=== PATIENT | male | born 1930 | race Caucasian/White ===

== ENCOUNTER 2017-09-19 10:49 | Inpatient (IN) | payer OTHER ==
[2017-09-19] MEDS ORDERED: LIDOCAINE VISCOUS 2% SOLN 15 ML UDC ONE (12:22)
[2017-09-19 12:28] LABS: Absolute Neutrophil 7.1 K/uL (1.8-8.0); Basophils % 0.2 % (0-1.3); Eosinophils % 0.7 % (0-4.4); Hematocrit 26.9 % (39.6-49.0); Lymphocytes % 10.7 % (15.3-44.8); MCH 22.9 pg (27.0-35.0); MCV 73.8 fL (80-100); MPV 7.8 fL (7.6-11.3); Monocytes % 10.9 % (3.3-12.3); RBC Red Blood Cell Count 3.65 M/uL (4.33-5.43)
--- NOTE | 2017-09-19 12:54 | RAD REPORT ---
EXAM DESCRIPTION: RAD - Chest Single View - 09/19/2017 12:05 pm CLINICAL HISTORY: Chest pain. COMPARISON: 03/12/2016 FINDINGS: Portable technique limits examination quality. Mild elevation the right hemidiaphragm is noted. The lungs are grossly clear. The heart is mildly enl arged in size with a tortuous thoracic aorta. Multi lead pacer device noted. IMPRESSION: No acute intrathoracic process suspected. Elevation right hemidiaphragmatic leaflet appe ars to be a chronic finding.
[2017-09-19 13:03] LABS: Potassium 4.5 mEq/L (3.6-5.0)
[2017-09-19 13:25] LABS: Urine Blood TRACE (NEG); Urine Glucose NEGATIVE (NEG); Urine Protein NEGATIVE (NEG)
[2017-09-19 13:30] LABS: Urine Bacteria 20-50 /HPF (NONE SEEN)
[2017-09-19 13:32] LABS: Urine Culture Reflex Order NOT NEEDED
--- NOTE | 2017-09-19 13:32 | ER ---
Nurse's Notes [facility] Name: Loco Pride Age: 86 yrs Sex: Male : 1930 Arrival Date: 09/19/2017 Time: 10:58 Bed 27 Private MD: Diagnosis: Melena;Anemia;Dyspnea, unspecified Presentation: 09/19 10:58 Presenting complaint: EMS states: pt reports weakness, that is chronic but has been sg worsening over the course of about 4 days now, pt being treated by his provider for a UTI, pt reports taking one of his medications today but cannot remember which medication it is, pt denies CP, Headache, Denies N/V/D, reports pain in the lumbar area of back. Transition of care: patient was not received from another setting of care. Onset of symptoms was September 19, 2017. Initial Sepsis Screen: Does the patient meet any 2 criteria? HR > 90 bpm. Does the patient have a suspected source of infection? Yes: Dysuria/Frequency/Urgency/UTI. Care prior to arrival: None. 10:58 Method Of Arrival: EMS: [facility] sg 10:58 Acuity: JANIS 3 sg Historical: - Allergies: 11:03 No Known Allergies; sg - PMHx: 11:02 High Cholesterol; Hypertension; sg - PSHx: 11:02 Knee surgery; Disc surgery; Pacemaker; sg - Immunization history:: Adult Immunizations up to date. - Social history:: Smoking status: Patient/guardian denies using tobacco. - Family history:: not pertinent. - Hospitalizations: : No recent hospitalization is reported. Screenin:12 Abuse screen: Denies threats or abuse. Denies injuries from another. Nutritional aj screening: No deficits noted. Tuberculosis screening: No symptoms or risk factors identified. Fall Risk None identified. Assessment: 11:19 General: Appears in no apparent distress. comfortable, Behavior is calm, cooperative, aj appropriate for age. Pain: Complains of pain in low back area. Neuro: Level of Consciousness is awake, alert, obeys commands, Oriented to person, place, time, situation, Appropriate for age. Respiratory: Airway is patent Respiratory effort is even, unlabored, Respiratory pattern is symmetrical, tachypnea the patient has mild shortness of breath. GI: Abdomen is non-distended, obese. : Reports incontinence, pain in lower back. Derm: Skin is intact, is healthy with good turgor, Skin is pink, warm \T\ dry. normal. 16:08 Reassessment: Patient appears in no apparent distress at this time. No changes from aj previously documented assessment. Patient and/or family updated on plan of care and expected duration. Pain level reassessed. Patient is alert, oriented x 3, equal unlabored respirations, skin warm/dry/pink. Patient states feeling better. Vital Signs: 11:00 BP 138 / 59; Pulse 76 MON; Resp 16; Pulse Ox 92% on R/A; sg 11:02 Weight 113.4 kg (R); sg 11:03 Temp 100.2(O); sg 11:12 BP 114 / 74; Pulse 79; Resp 20; Temp 99.1(O); Pulse Ox 98% on 3 lpm NC; aj 13:20 BP 113 / 67; Pulse 73; Resp 26; Pulse Ox 100% on 3 lpm NC; aj 15:27 BP 111 / 51; Pulse 74; Resp 18; Pulse Ox 99% on 3 lpm NC; aj ED Course: 10:58 Patient arrived in ED. sg 11:00 Triage completed. sg 11:03 Oxygen administration via nasal cannula \T\ 2L/min Response to oxygen therapy: symptoms sg improved. 11:11 Anuja Casas, RN is Primary Nurse. aj 11:12 Patient has correct armband on for positive identification. Bed in low position. Call aj light in reach. Side rails up X 1. Adult w/ patient. Pulse ox on. NIBP on. 11:13 Mukesh Salazar MD is Attending Physician. rn 12:00 Initial lab(s) drawn, by wi, sent to lab. First set of blood cultures drawn by me. 3 Inserted saline lock: 20 gauge in left antecubital area, using aseptic technique. Blood collected. 12:05 X-ray completed. Portable x-ray completed in exam room. Patient tolerated procedure jb2 well. 12:06 XRAY Chest (1 view) In Process Unspecified. EDMS 12:15 Second set of blood cultures drawn by me, by venipuncture 21G to right ac. dh3 13:20 Served as a graduation coach during rectal exam. aj 13:30 Rajeev Villalobos DO is Hospitalizing Provider. rn 13:40 T\T\S collected, blood band applied to patient. dh3 16:08 Patient admitted, IV remains in place. intact. aj Administered Medications: 14:54 Drug: ProTONIX 40 mg Route: IVP; Site: left antecubital; aj 17:12 Follow up: Response: No adverse reaction aj 14:54 Drug: ProTONIX 8 mg/hr Route: IV; Rate: 25 ml/hr; Site: left antecubital; aj 17:11 Follow up: Response: No adverse reaction; IV Status: Infusion continued upon admission aj 14:54 Drug: Demerol - Meperidine 12.5 mg Route: IVP; Site: left antecubital; aj 17:11 Follow up: Response: Pain is decreased aj Point of Care Testing: Guaiac: 13:29 Stool Guaiac: Positive; Stool Hemoccult Control: Pass; rn Outcome: 13:31 Decision to Hospitalize by Provider. rn 16:08 Admitted to Med/surg accompanied by tech, family with patient, via stretcher, room 412, aj with oxygen, with chart, Report called to Delphine 16:08 Condition: good 16:08 Instructed on the need for admit. 17:12 Patient left the ED. drea Signatures: Dispatcher [employer] EDMS Leonid Ascencio RN Anuja Villela RN Jeffrey Bernard Roman, MD MD rn Herrera, Deanna 3 Corrections: (The following items were deleted from the chart) 11:23 11:12 BP 114 / 74; Pulse 79bpm; Resp 20bpm; aj aj 12:18 12:15 Second set of blood cultures drawn by carlos chavez 3
--- NOTE | 2017-09-19 13:32 | EDPHYS ---
Physician Documentation [facility] Name: Loco Pride Age: 86 yrs Sex: Male : 1930 Arrival Date: 09/19/2017 Time: 10:58 Bed 27 Private MD: ED Physician Mukesh Salazar HPI: 09/19 11:24 This 86 yrs old Male presents to ER via EMS with complaints of General rn Weakness. 11:24 The patient has shortness of breath at rest, with light activity. Onset: The rn symptoms/episode began/occurred at an unknown time. The patient's shortness of breath is aggravated by exertion, light activity, supine position, talking, walking. Associated signs and symptoms: Pertinent positives: non-productive cough, fever, Pertinent negatives: hemoptysis, loss of consciousness. Severity of symptoms: At their worst the symptoms were moderate in the emergency department the symptoms are unchanged. The patient has experienced similar episodes in the past. Reports sob, worse over last few days, nonproductive cough, + low grade fever, was treated recently for UTI/bronchitis with z pack, reports also generalized weakness, and low grade fever. No vomiting/diarrhea/chest pain/abd pain.. Historical: - Allergies: 11:03 No Known Allergies; sg - PMHx: 11:02 High Cholesterol; Hypertension; sg - PSHx: 11:02 Knee surgery; Disc surgery; Pacemaker; sg - Immunization history:: Adult Immunizations up to date. - Social history:: Smoking status: Patient/guardian denies using tobacco. - Family history:: not pertinent. - Hospitalizations: : No recent hospitalization is reported. ROS: 11:24 Constitutional: Negative for weight loss Eyes: Negative for injury, pain, redness, and furniture builder, Neck: Negative for injury, pain, and swelling, Cardiovascular: Negative for chest pain, palpitations Respiratory: Negative for wheezing, and pleuritic chest pain, Abdomen/GI: Negative for abdominal pain, nausea, vomiting, diarrhea, and constipation, Back: Negative for injury MS/Extremity: Negative for injury and deformity, Skin: Negative for injury, rash, and discoloration, Neuro: Negative for headache, numbness, tingling, and seizure. Exam: 11:24 Constitutional: This is a well developed, well nourished patient who is awake, alert, rn and in no acute distress. Head/Face: Normocephalic, atraumatic. Eyes: Pupils equal round and reactive to light, extra-ocular motions intact. Lids and lashes normal. Conjunctiva and sclera are non-icteric and not injected. Cornea within normal limits. Periorbital areas with no swelling, redness, or edema. Neck: Trachea midline, no thyromegaly or masses palpated, and no cervical lymphadenopathy. Supple, full range of motion without nuchal rigidity, or vertebral point tenderness. No Meningismus. Cardiovascular: Regular rate and rhythm with a normal S1 and S2. No gallops, murmurs, or rubs. Normal PMI, no JVD. No pulse deficits. Respiratory: + mild tachypnea, no retractions, no wheezing, speaking full sentences Abdomen/GI: Soft, non-tender, with normal bowel sounds. No distension or tympany. No guarding or rebound. No evidence of tenderness throughout. Back: No spinal tenderness. + mild tenderness without skin changes bilateral perilumbar regions and midline. MS/ Extremity: Pulses equal, no cyanosis. Neurovascular intact. Full, normal range of motion. Equal circumference. Neuro: Awake and alert, GCS 15, oriented to person, place, time, and situation. Cranial nerves II-XII grossly intact. Motor strength 5/5 in all extremities. Sensory grossly intact. Vital Signs: 11:00 BP 138 / 59; Pulse 76 MON; Resp 16; Pulse Ox 92% on R/A; sg 11:02 Weight 113.4 kg (R); sg 11:03 Temp 100.2(O); sg 11:12 BP 114 / 74; Pulse 79; Resp 20; Temp 99.1(O); Pulse Ox 98% on 3 lpm NC; aj 13:20 BP 113 / 67; Pulse 73; Resp 26; Pulse Ox 100% on 3 lpm NC; aj 15:27 BP 111 / 51; Pulse 74; Resp 18; Pulse Ox 99% on 3 lpm NC; aj MDM: 11:13 Patient medically screened. rn 13:29 Differential diagnosis: Anemia CHF exacerbation, Myocardial Infarction pneumonia, rn Pneumothorax pulmonary edema. Data reviewed: vital signs, nurses notes, lab test result(s), EKG, radiologic studies, plain films, and as a result, I will admit patient. Counseling: I had a detailed discussion with the patient and/or guardian regarding: the historical points, exam findings, and any diagnostic results supporting the discharge/admit diagnosis, lab results, radiology results, the need for further work-up and treatment in the hospital. Admission orders: after a detailed discussion of the patient's condition and case, the admit orders are written by me. 13:29 ED course: Drop in hemoglobin from 13 to 8, melena, and + hemoccult, will admit for GI rn w/u, on pradaxa. . 09/19 11:20 Order name: CBC with Diff; Complete Time: 12:30 rn 09/19 11:20 Order name: Basic Metabolic Panel; Complete Time: 13:26 rn 09/19 11:20 Order name: Urine Culture rn 09/19 11:20 Order name: Urine Microscopic Only rn 09/19 11:20 Order name: Blood Culture Adult (2) rn 09/19 11:20 Order name: Procalcitonin; Complete Time: 13:26 rn 09/19 11:20 Order name: XRAY Chest (1 view); Complete Time: 13:03 rn 09/19 11:20 Order name: BNP; Complete Time: 13:03 rn 09/19 12:43 Order name: Urine Dipstick--Ancillary (enter results); Complete Time: 13:26 09/19 13:26 Order name: Type And Screen rn 09/19 14:31 Order name: ABO/RH no charge EDME 09/19 11:20 Order name: IV Start; Complete Time: 12:07 rn 09/19 11:20 Order name: Urine Dipstick-Ancillary (obtain specimen); Complete Time: 14:54 rn Administered Medications: 14:54 Drug: ProTONIX 40 mg Route: IVP; Site: left antecubital; aj 17:12 Follow up: Response: No adverse reaction aj 14:54 Drug: ProTONIX 8 mg/hr Route: IV; Rate: 25 ml/hr; Site: left antecubital; aj 17:11 Follow up: Response: No adverse reaction; IV Status: Infusion continued upon admission aj 14:54 Drug: Demerol - Meperidine 12.5 mg Route: IVP; Site: left antecubital; aj 17:11 Follow up: Response: Pain is decreased aj Point of Care Testing: Guaiac: 13:29 Stool Guaiac: Positive; Stool Hemoccult Control: Pass; rn Disposition: 09/19/17 13:31 Hospitalization ordered by Rajeev Villalobos for Inpatient Admission. Preliminary diagnosis are Melena, Anemia, Dyspnea, unspecified. - Bed requested for Telemetry/MedSurg (Inpatient). - Status is Inpatient Admission. aj - Condition is Stable. - Problem is new. - Symptoms have improved. UTI on Admission? No Signatures: Dispatcher [employer] EDMS AydeeRoselia foy Leonid Guzman RN RN sg Myers, Amanda, RN RN aj Nieto, Roman, MD MD rn acute care: (The following items were deleted from the chart) 15:15 13:31 Hospitalization Ordered by Rajeev Villalobos DO for Inpatient Admission. Preliminary bd diagnosis is Melena; Anemia; Dyspnea, unspecified. Bed requested for Telemetry/MedSurg (Inpatient). Status is Inpatient Admission. Condition is Stable. Problem is new. Symptoms have improved. UTI on Admission? No. rn 17:12 15:15 09/19/2017 13:31 Hospitalization Ordered by Rajeev Villalobos DO for Inpatient aj Admission. Preliminary diagnosis is Melena; Anemia; Dyspnea, unspecified. Bed requested for Telemetry/MedSurg (Inpatient). Status is Inpatient Admission. Condition is Stable. Problem is new. Symptoms have improved. UTI on Admission? No. bd
[2017-09-19] MEDS ORDERED: PANTOPRAZOLE INJ 80 MG in NA CHLORIDE 0.9% 250 ML IV ONE (14:30)
[2017-09-19] MEDS ORDERED: PANTOPRAZOLE 40 MG INJ ONE (14:45)
[2017-09-19] MEDS ORDERED: MEPERIDINE HCL 25 MG/0.5 ML ONE (14:52)
--- NOTE | 2017-09-19 15:24 | P.HP ---
Addendum entered and electronically signed by Garret Vela PA 09/19/17 15:49 : Patient with catheterized urine showing bacteria. Will treat as UTI and put on cipro pending cultures Original Note: Certification for Inpatient Patient admitted to: Inpatient With expected LOS: >2 Midnights Patient will require the following post-hospital care: None Practitioner: I am a practitioner with admitting privileges, knowledge of patient current condition, hospital course, and medical plan of care. Services: Services provided to patient in accordance with Admission requirements found in Title 42 Section 412.3 of the Code of Federal Regulations <Garret Vela - Last Filed: 09/19/17 15:18> Patient admitted to: Inpatient With expected LOS: >2 Midnights Patient will require the following post-hospital care: None Practitioner: I am a practitioner with admitting privileges, knowledge of patient current condition, hospital course, and medical plan of care. Services: Services provided to patient in accordance with Admission requirements found in Title 42 Section 412.3 of the Code of Federal Regulations <Rajeev Villalobos - Last Filed: 09/19/17 18:41> Patient History Date of Service: 09/19/17 Primary Care Provider: Sander Reason for admission: Gastrointestinal Hemorrhage History of Present Illness: This is an 86 y/o M that presented to the ED for general weakness. Patient sated that he normally is not this week. This has been going on only for the past few days. Noted to also have black stools as well. Patient currently on Pradaxa for Atrial fibrillation. Patient in ED had positive guaiac test. Home medications list reviewed: Yes - Past Medical/Surgical History Diabetic: No -: CAD -: COPD -: L cornea transplant -: A-fib -: BPH -: Rt knee deteroration -: HTN -: Hyperlipidemia -: electrocuted -: Congestive heart failure -: Elevated right hemidiaphragm -: pacemaker december 04, 2014 -: L cornea eye transplant -: back surg- bri disc x2 -: rt knee sx - Family History Mother -: Cancer, Other (see notes) Notes: alzheimers Father -: Stroke - Social History Smoking Status: Former smoker Smoking therapy provided: No Alcohol use: No CD- Drugs: No Caffeine use: No <Garret Vela - Last Filed: 09/19/17 15:18> Date of Service: 09/19/17 Primary Care Provider: Dr. Boucher; Cardiology-Dr. Meneses History of Present Illness: Patient reports some weakness and feeling dizzy. He is taking chronic anticoagulation therapy for Atrial fibrillation. No fever or chills noted. He is taking medication for CHF. No edema, SOB, or chest pain noted. Home medications list reviewed: Yes - Past Medical/Surgical History -: A-fib, Chronic anticoagulation -: Former smoker Psychosocial/ Personal History: He is . - Family History Father -: Stroke - Social History Smoking Status: Former smoker Smoking therapy provided: No Alcohol use: No CD- Drugs: No Caffeine use: No Place of Residence: Home <MoisesfrankyRajeev - Last Filed: 09/19/17 18:41> Allergies No Known Drug Allergies Allergy (Verified 04/29/15 12:39) Unknown No Known Allergies Allergy (Uncoded 09/19/17 17:15) Unknown Home Medications: Dabigatran Etexilate Mesylate [Pradaxa] 1 tab PO BID 6AM 6PM 09/19/17 Finasteride [Proscar] 5 mg PO NOON 09/19/17 Fluorometholone 0.1% [Fml 0.1%*] 1 drop LEFT EYE BEDTIME 09/19/17 Furosemide [Lasix] 1 tab PO DAILY 09/19/17 Metoprolol Tartrate 25 mg PO BID 6AM 6PM 09/19/17 Multivit-Min/FA/Lycopen/Lutein [Centrum Silver Tablet] 1 tab PO NOON 09/19/17 Oxybutynin Chloride [Ditropan*] 1 tab PO BEDTIME 09/19/17 Potassium Chloride 20 meq PO QID 09/19/17 Pravastatin [Pravachol] 40 mg PO DAILY 6PM 09/19/17 Sacubitril/Valsartan [Entresto 49 mg-51 mg Tablet] 1 tab PO BID 6AM 6PM Tamsulosin [Flomax*] 1 cap PO BEDTIME 09/19/17 Ubidecarenone/Vitamin E Mixed [Yfs47-Lma E 200 mg-20 Unit Sfg] 1 each PO NOON Review of Systems General: Weakness Eyes: Unremarkable ENT: Unremarkable Respiratory: Unremarkable Cardiovascular: Unremarkable Gastrointestinal: Melena, As per HPI Genitourinary: Unremarkable Musculoskeletal: Unremarkable Integumentary: Unremarkable Neurological: Unremarkable Lymphatics: Unremarkable <IdaneldaBrittney de los santosGarret - Last Filed: 09/19/17 15:18> General: Weakness Eyes: Unremarkable ENT: Unremarkable Respiratory: Unremarkable Cardiovascular: Unremarkable Gastrointestinal: Melena, As per HPI Genitourinary: Unremarkable Musculoskeletal: Unremarkable Integumentary: Unremarkable Neurological: Unremarkable Lymphatics: Unremarkable <Rajeev Villalobos - Last Filed: 09/19/17 18:41> Physical Examination - Vital Signs Temperature: 99.1 F Blood Pressure: 111/51 Pulse: 74 Respirations: 18 Pulse Ox (%): 99 - Physical Exam General: Alert, In no apparent distress, Oriented x3, Cooperative HEENT: Atraumatic, Normocephalic, PERRLA, Mucous membr. moist/pink, EOMI Neck: Supple, 2+ carotid pulse no bruit, JVD not distended, No Thyromegaly Respiratory: Clear to auscultation bilaterally, Normal air movement Cardiovascular: No edema, Normal pulses, Regular rate/rhythm, Normal S1 S2, No gallops, No rubs, No murmurs Capillary refill: <2 Seconds Gastrointestinal: Normal bowel sounds, Soft and benign, Non-distended, No ascites, No tenderness, No masses, No rebound, No guarding Musculoskeletal: No clubbing, No swelling, No erythema, No tenderness, No warmth Integumentary: No rashes, No breakdown, No significant lesion Neurological: Normal speech, Normal strength at 5/5 x4 extr, Normal tone, Sensation intact, Cranial nerves 3-12 intact, Normal reflexes 2+, Normal affect - Studies Laboratory Data (last 24 hrs) 09/19/17 12:00: B-Natriuretic Peptide 496 H 09/19/17 12:00: Sodium 141, Potassium 4.5, BUN 23 H, Creatinine 1.28 H, Glucose 98 09/19/17 12:00: WBC 9.1, Hgb 8.4 L, Hct 26.9 L, Plt Count 282 <Brittney Velashua - Last Filed: 09/19/17 15:18> - Physical Exam General: Alert, In no apparent distress, Oriented x3, Oriented x2, Cooperative HEENT: Atraumatic, Normocephalic, PERRLA Neck: Supple, 2+ carotid pulse no bruit Respiratory: Clear to auscultation bilaterally, Normal air movement Cardiovascular: Normal pulses, Regular rate/rhythm Gastrointestinal: Normal bowel sounds, Soft and benign, Non-distended Musculoskeletal: No erythema, No tenderness, No warmth - Studies Laboratory Data (last 24 hrs) 09/19/17 12:00: B-Natriuretic Peptide 496 H 09/19/17 12:00: Sodium 141, Potassium 4.5, BUN 23 H, Creatinine 1.28 H, Glucose 98 09/19/17 12:00: WBC 9.1, Hgb 8.4 L, Hct 26.9 L, Plt Count 282 <Rajeev Villalobos - Last Filed: 09/19/17 18:41> Assessment and Plan - Problems (Diagnosis) (1) Anemia Current Visit: Yes Status: Acute Plan: Monitor H/H. If necessary transfuse patient. GI consulted for gastrointestinal hemorrhage Qualifiers: Anemia type: iron deficiency Iron deficiency anemia type: unspecified iron deficiency Qualified Code(s): D50.9 - Iron deficiency anemia, unspecified (2) Gastrointestinal hemorrhage Current Visit: Yes Status: Acute Plan: GI consult. Patient put on protonix drip. Monitoring H/H. Qualifiers: GI bleed type/associated pathology: melena Qualified Code(s): K92.1 - Melena (3) Atrial fibrillation Current Visit: No Status: Chronic Qualifiers: Atrial fibrillation type: chronic Qualified Code(s): I48.2 - Chronic atrial fibrillation (4) CHF (congestive heart failure) Onset Date: 10/23/14 Current Visit: No Status: Chronic Qualifiers: Heart failure type: combined systolic and diastolic Heart failure chronicity: chronic Qualified Code(s): I50.42 - Chronic combined systolic ( congestive) and diastolic (congestive) heart failure Discharge Plan: Home Plan to discharge in: Greater than 2 days - Advance Directives Does patient have a Living Will: No Does patient have a Durable POA for Healthcare: Yes - Code Status/Comfort Care Code Status Assessed: Yes Code Status: Full Code <Garret Vela - Last Filed: 09/19/17 15:18> - Problems (Diagnosis) (1) Chronic renal disease Current Visit: Yes Status: Chronic Plan: WIll monitor lab. Patient on Lasix for CHF. Patient admitted for GI bleed on Pradaxa. Qualifiers: Chronic kidney disease stage: stage 2 (mild) Qualified Code(s): N18.2 - Chronic kidney disease, stage 2 (mild) (2) BPH (benign prostatic hyperplasia) Current Visit: Yes Status: Chronic Plan: Will continue his medication. Qualifiers: Lower urinary tract symptom presence: unspecified whether lower urinary tract symptoms present Qualified Code(s): N40.0 - Benign prostatic hyperplasia without lower urinary tract symptoms (3) GERD (gastroesophageal reflux disease) Current Visit: Yes Status: Acute Plan: Suspect GI bleed. Currently on Protonix drip. Spoke to GI this afternoon. Will plan for EGD tomorrow after Cardiology clearance. Will need to hold Pradaxa for now. May need transfusion is Hemoglobin is less than 7.0. (4) Anemia Current Visit: Yes Status: Acute Plan: Suspect GI bleed on Pradaxa. Will hold Pradaxa. SPoke to GI. They will proceed with EGD tomorrow after Cardiology clearance. Will start Rocephin IV. Will monitor Hemoglobin. May need transfusion if Hemoglobin below 7.0. Will check Iron and B12. Will hold Entrusto. Qualifiers: Anemia type: iron deficiency Iron deficiency anemia type: unspecified iron deficiency Qualified Code(s): D50.9 - Iron deficiency anemia, unspecified (5) Gastrointestinal hemorrhage Current Visit: Yes Status: Acute Plan: As above Qualifiers: GI bleed type/associated pathology: melena Qualified Code(s): K92.1 - Melena (6) Atrial fibrillation Onset Date: 03/12/16 Current Visit: No Status: Chronic Plan: Will hold Pradaxa. Will hold Entrusto. Will continue with Metoprolol. May need to hold medication if BP low. Qualifiers: Atrial fibrillation type: chronic Qualified Code(s): I48.2 - Chronic atrial fibrillation (7) COPD (chronic obstructive pulmonary disease) Onset Date: 10/23/14 Current Visit: No Status: Chronic Plan: Will provide medication. Qualifiers: COPD type: chronic bronchitis Chronic bronchitis type: unspecified Qualified Code(s): J42 - Unspecified chronic bronchitis (8) Dizziness Onset Date: 03/12/16 Current Visit: No Status: Acute Plan: Continue as above (9) HTN (hypertension) Onset Date: 10/23/14 Current Visit: No Status: Chronic Plan: Will hold Entrusto. Will continue with metoprolol. May need to hold if BP is low. Qualifiers: Hypertension type: essential hypertension Qualified Code(s): I10 - Essential (primary) hypertension (10) CHF (congestive heart failure) Onset Date: 10/23/14 Current Visit: No Status: Chronic Plan: Stable. Will Hold IV fluids. Will hold Entrusto. Continue with Lasix. Qualifiers: Heart failure type: combined systolic and diastolic Heart failure chronicity: chronic Qualified Code(s): I50.42 - Chronic combined systolic ( congestive) and diastolic (congestive) heart failure (11) UTI (urinary tract infection) Current Visit: Yes Status: Acute Plan: Will change Cipro to Rocephin. Urine and Blood culture obtained. Qualifiers: Urinary tract infection type: site unspecified Hematuria presence: without hematuria Qualified Code(s): N39.0 - Urinary tract infection, site not specified Discharge Plan: Home Plan to discharge in: Greater than 2 days Time Spent Managing Pts Care (In Minutes): 55 <Rajeev Villalobos - Last Filed: 09/19/17 18:41>
[2017-09-19] MEDS ORDERED: ACETAMINOPHEN 500 MG TAB PO PRN (16:52)
[2017-09-19] MEDS ORDERED: NA CHLORIDE 0.9% 1,000 ML IV SCH (16:52)
[2017-09-19] MEDS: PANTOPRAZOLE INJ 80 MG in NA CHLORIDE 0.9% 250 ML IV SCH (17:30)
[2017-09-19] MEDS ORDERED: CIPROFLOXACIN 400mg IV 400 MG/200 ML BAG IV SCH (21:00)
[2017-09-19] MEDS: FLUOROMETHOLONE 0.1% LEFT EYE SCH (21:00)
[2017-09-19] MEDS: TAMSULOSIN 0.4 MG SR CAP PO SCH (22:44)
[2017-09-19] MEDS: ATORVASTATIN 10 MG TAB PO SCH (22:48)
[2017-09-19] MEDS: CEFTRIAXONE/SWI 1gm 1 GM/10 ML SYR IV SCH (22:48)
[2017-09-19] MEDS: OXYBUTYNIN CHLORIDE 5 MG TAB PO SCH (22:48)
[2017-09-19 23:48] LABS: Hematocrit 26.3 % (39.6-49.0)
[2017-09-20] MEDS: PANTOPRAZOLE INJ 80 MG in NA CHLORIDE 0.9% 250 ML IV SCH ×2 (03:45→14:15)
[2017-09-20] MEDS: METOPROLOL TAR 25 MG TAB PO SCH ×2 (05:34→17:21)
[2017-09-20 06:05] LABS: Absolute Lymphocytes (CBC) 1.1 K/uL (0.7-4.9); Absolute Monocytes 1.3 K/uL (0.1-1.3); Absolute Neutrophil 9.4 K/uL (1.8-8.0); Basophils % 0.2 % (0-1.3); Eosinophils % 0.4 % (0-4.4); Hematocrit 23.5 % (39.6-49.0); Lymphocytes % 9.5 % (15.3-44.8); MCH 22.7 pg (27.0-35.0); MPV 7.8 fL (7.6-11.3); Monocytes % 10.9 % (3.3-12.3); RBC Red Blood Cell Count 3.18 M/uL (4.33-5.43)
[2017-09-20 06:51] LABS: Albumin 2.4 g/dL (3.2-5.5); Bilirubin Direct 0.1 mg/dL (0-0.2); Bilirubin Total 0.6 mg/dL (0.3-1.2); Potassium 4.6 mEq/L (3.6-5.0); Protein, Total 5.2 g/dL (6.0-8.3)
[2017-09-20 07:02] LABS: Ferritin 24.5 ng/ml (23.9-336.2); Thyroid Stimulating Hormone 1.76 uIU/mL (0.34-5.60)
[2017-09-20] MEDS ORDERED: NA CHLORIDE 0.9% 500 ML ONE (08:18)
[2017-09-20] MEDS ORDERED: CEFTRIAXONE 1 GM/NS 50 ML 1 GM/50 ML BAG IV SCH (09:00)
[2017-09-20] MEDS: FINASTERIDE 5 MG TAB PO SCH (12:00)
[2017-09-20] MEDS: HYDROCODONE/APAP 5/325 MG TAB PO PRN (14:15)
--- NOTE | 2017-09-20 15:28 | EKG ---
Test Date: 2017-09-20 Test Time: 09:33:05 [employer] Mock Up Assembler: JOSE LUIS MEASUREMENT RESULTS: Intervals: Rate: 77 CT: QRSD: 182 QT: 476 QTc: 538 [place]: P: CT: QRS: 245 T: 54 INTERPRETIVE STATEMENTS: paced rhythm Right bundle branch block Possible Lateral infarct, age undetermined Inferior infarct, age undetermined Abnormal ECG Compared to ECG 03/11/2016 06:16:50 [facility] Electronically Signed On 09-20-17 15:26:53 CDT by Adriel Meneses
--- NOTE | 2017-09-20 18:49 | PN ---
Date of Progress Note: 09/20/2017 History: The patient is seen and examined. Chart reviewed and case discussed with RN and Dr. Danuta wiley. The patient is going for EGD today by Cardiology. No further bleeding from the stool. Son and randy varner at the bedside, and also present. Treatment plan explained. All questions answered. Review of Systems: Negative except as above. Medications: Reviewed. Physical Examination: Vital Signs: Temperature 98.5, heart rate 76, blood pressure 127/41, respirations 20, O2 98% on 2 L via nasal cannula. General: Awake, alert, oriented x2. Elderly male. Obese. BMI 36.7. Ill-appearing. CV: S1, S2. No murmurs. Regular rate and rhythm. Peripheral pulses present. Respiratory: Moving air well bilaterally. No wheezing. No stridor. Gastrointestinal: Abdomen is soft, nontender, nondistended. Positive bowel sounds. No guarding or rigidity. Extremities: No clubbing, cyanosis, or edema. Neurologic: Nonfocal. Laboratory Data: Sodium 138, potassium 4.6, chloride 104, CO2 29, BUN 24, creatinine 1.32, glucose 1 18, calcium 7.6, albumin 2.4. WBC 11.9, H and H 7.2, 23.5, platelets 230, neutrophils 79%. Blood cu ltures gram-positive cocci in pairs and chains. Urine culture is pending. Assessment And Plan: An 86-year-old male with: 1.Upper gastrointestinal bleed. We will continue on Protonix drip. Monitor H and H. 2.Acute blood loss anemia. We will transfuse if less than 7. Monitor H and H. GI on board. Going for EGD. 3.Chronic atrial fibrillation. Hold anticoagulation due to GI bleed. 4.Combined systolic and diastolic heart failure, chronic. Continue home medications as appropriate. 5.Obesity, BMI 36.7. 6.Coronary artery disease [place] artery and [place] heart without angina. 7.Chronic obstructive pulmonary disease, chronic bronchitis. 8.Benign prostatic hypertrophy. Resume home medication. 9.Essential hypertension, stable. 10.Hyperlipidemia. 11.Continue home medication. 12.Status post pacemaker. SA/MODL Voice ID: [id number] Report ID: [id number]
[2017-09-20] MEDS: FLUOROMETHOLONE 0.1% LEFT EYE SCH (21:00)
[2017-09-20] MEDS: ATORVASTATIN 10 MG TAB PO SCH (22:01)
[2017-09-20] MEDS: TAMSULOSIN 0.4 MG SR CAP PO SCH (22:01)
[2017-09-20] MEDS: OXYBUTYNIN CHLORIDE 5 MG TAB PO SCH (22:05)
[2017-09-20] MEDS: CEFTRIAXONE/SWI 1gm 1 GM/10 ML SYR IV SCH (22:05)
--- NOTE | 2017-09-20 23:37 | CON ---
Date of Consultation: 09/20/2017 I saw the patient on 09/20/2017. Reason For Consultation: Cardiac clearance because of history of congestive heart failure and atrial fibrillation, on anticoagulation. History Of Present Illness: Mr. Pride is a patient of ours for many years. He has a history of hyp ertension, dyslipidemia, congestive heart failure. He is status post AICD and pacemaker placement. He has a history of CAD and COPD. He came in with a GI bleed that sounds chronic. Hemoglobin was 8. 4 and was 7.2 today. He is receiving transfusion. He has a BNP of 426, creatinine of 1.28. He came in, and he was taking Pradaxa at home and has noted some bleeding that is mild, but he was guaiac po sitive. Endoscopy is planned. Last ejection fraction 45%, which is chronic for him. No cardiac sym ptoms. Past Medical History: As stated earlier. Allergies: NONE. Review of Systems: Negative. Social History: Negative. Family History: Negative. Medications: At home include Pradaxa, Lasix, metoprolol, Pravachol, potassium, Entresto, and Flomax. Physical Examination: General: He appear to be very fatigued, but no shortness of breath. No chest pain. Vital Signs: Stable. Afebrile. HEENT: Negative. Neck: Supple without any bruit, lymphadenopathy, thyromegaly, or JVD. Chest: Clear. Cardiac: Revealed a regular rhythm and rate. No murmurs, gallops, or rubs. Abdomen: Benign. Extremities: Revealed no clubbing, cyanosis, or edema. Diagnostic Data: As stated earlier, EKG showed paced rhythm. Chest x-ray is negative. Impression And Plan: 1.Chronic systolic congestive heart failure, stable, asymptomatic, on appropriate therapy. We will clear him for endoscopy. 2.Atrial fibrillation, on Pradaxa that is held for now. Transfusion has been ordered. 3.Hypertension, stable. 4.Dyslipidemia, stable. 5.Status post automatic implantable cardioverter-defibrillator and pacemaker, checked recently, and they were functioning properly. 6.History of coronary artery disease and chronic obstructive pulmonary disease. Both of those are s table. We will follow him along. RAI/ORTIZ Voice ID: [id number] Report ID: [id number]
[2017-09-21] MEDS: PANTOPRAZOLE INJ 80 MG in NA CHLORIDE 0.9% 250 ML IV SCH ×3 (03:15→20:58)
[2017-09-21 04:50] LABS: Absolute Lymphocytes (CBC) 1.3 K/uL (0.7-4.9); Absolute Monocytes 1.2 K/uL (0.1-1.3); Absolute Neutrophil 10.5 K/uL (1.8-8.0); Basophils % 0.3 % (0-1.3); Eosinophils % 1.8 % (0-4.4); Hematocrit 25.7 % (39.6-49.0); Lymphocytes % 9.7 % (15.3-44.8); MCH 23.4 pg (27.0-35.0); MCV 75.1 fL (80-100); MPV 8.1 fL (7.6-11.3); Monocytes % 9.2 % (3.3-12.3); RBC Red Blood Cell Count 3.42 M/uL (4.33-5.43)
[2017-09-21 05:04] LABS: Potassium 4.7 mEq/L (3.6-5.0)
[2017-09-21] MEDS: METOPROLOL TAR 25 MG TAB PO SCH ×2 (06:38→06:43)
[2017-09-21 07:16] VITALS: BMI 37.3
[2017-09-21] MEDS ORDERED: Morphine 2 MG/2 ML SYR IV ONE (10:27)
[2017-09-21] MEDS: FINASTERIDE 5 MG TAB PO SCH (12:00)
[2017-09-21] MEDS ORDERED: Ringers Lactate 1,000 ML IV ONE (13:30)
[2017-09-21] MEDS ORDERED: PROPOFOL 200 MG/20 ML VIAL IV ONE (13:43)
--- NOTE | 2017-09-21 14:34 | PN ---
Date of Progress Note: 09/21/2017 Subjective: The patient is seen and examined. Chart reviewed and case discussed with RN. The patie nt going for EGD today. I spoke with Dr. Mancia plans on doing a scope today. No further episodes of bleeding. Review of Systems: Negative except as above. Medications: Reviewed. Physical Examination: Vital Signs: Temperature 97.9, heart rate 70, blood pressure 110/56, respirations 18, O2 sat 95% on 2 L via nasal cannula. General: Awake, alert, oriented x2, elderly male, ill-appearing frail, morbidly obese. CV: S1, S2. Peripheral pulses present. Respiratory: Moving air well bilaterally. No stridor. No wheezing. No use of accessory muscles. Gastrointestinal: Abdomen is soft, nontender, nondistended. Positive bowel sounds. No guarding or rigidity. Bowel sounds positive. Extremities: No clubbing, cyanosis, edema. Neurologic: Nonfocal. Laboratory Data: Sodium 139, potassium 4.7, chloride 103, CO2 30, BUN 22, creatinine 1.24, glucose 1 12, calcium 8. WBC 13.3, H and H 8 and 25.7, platelets 229, neutrophils 79%. Blood cultures pending . Urine culture, 3+ [id number] strep. Assessment And Plan: An 86-year-old male with: 1.Upper gastrointestinal bleed. Continue on Protonix drip. Monitor H and H. The patient going for EGD today by Dr. Mancia. 2.Acute blood loss anemia. Monitor H and H, transfuse if less than 7. Appreciate GI input. 3.Chronic atrial fibrillation. Anticoagulation held due to gastrointestinal bleed. 4.Combined systolic and diastolic heart failure, chronic. Continue home medications. 5.Obesity, BMI 37. 6.Coronary artery disease, [place] artery and [place] heart without angina, stable. 7.Chronic obstructive pulmonary disease, chronic bronchitis, currently on 2 L of oxygen. 8.Benign prostatic hypertrophy, stable on medications. 9.Essential hypertension, stable. 10.Hyperlipidemia, mixed. Continue home medications. 11.Status post pacemaker. Plan: Follow up with GI recommendations post EGD. SA/MODL Voice ID: [id number] Report ID: [id number]
[2017-09-21] MEDS: HYDROCODONE/APAP 5/325 MG TAB PO PRN (17:58)
[2017-09-21] MEDS: ATORVASTATIN 10 MG TAB PO SCH (20:59)
[2017-09-21] MEDS: OXYBUTYNIN CHLORIDE 5 MG TAB PO SCH (20:59)
[2017-09-21] MEDS: CEFTRIAXONE/SWI 1gm 1 GM/10 ML SYR IV SCH (20:59)
[2017-09-21] MEDS: TAMSULOSIN 0.4 MG SR CAP PO SCH (20:59)
[2017-09-21] MEDS: FLUOROMETHOLONE 0.1% LEFT EYE SCH (21:00)
--- NOTE | 2017-09-22 02:33 | OP ---
Date of Procedure: 09/21/2017 Surgeon: MD Dr. Wilfredo Workman. Procedure Peformed: Esophagogastroduodenoscopy with biopsy from gastric body and antrum. Anesthesia: By Department of Anesthesia. Indication: 1.See Dr. Correia's consult who did the original consult on this patient. 2.Anemia, concern for GI bleeding. Premedication: Per Anesthesia. Procedure In Detail: Procedure, possible complications, alternatives including but not limited to po ssibility of bleeding, perforation, tear, infection, sepsis, need for surgery, need for blood transfu daniela, anesthesia-related problem including rare fatalities explained to be informed constitution party, consent ob tained. He was placed in left lateral position. After appropriate level of anesthesia, scope was pa ssed. Esophageal mucosa in the proximal, mid, and distal aspect appeared to be within normal range. EG junction is normal. Z-line is regular. In the stomach, mucosa of the fundus, body, antrum, pyloric area, prepyloric area, and upon retroflex ion, diffuse gastritis noted of mild variety. No active or passive bleeding noted. No ulceration or erosion noted. In the duodenum, duodenal bulb, duodenal angle, duodenal part 2 appeared to be within normal range. Having done the above procedure in safe, diligent, and satisfactory manner, endoscope and rest of the endoscopic accessories were removed. The patient's oropharyngeal area was cleaned out in a respectf ul manner. The patient has been sent in excellent condition to postop recovery, from there to the [facility]. Impression: Diffuse gastritis. Plan: Await biopsy results. Continue proton pump inhibitor. Start diet. Advance as tolerated. Fu rther treatment as an outpatient. The patient will most likely need colonoscopy on an outpatient bas is once his condition stabilizes. Complications: None. The patient tolerated the procedure well. Disposition: As above. NMM/MODL Voice ID: [id number] Report ID: [id number]
[2017-09-22 04:52] LABS: Potassium 4.1 mEq/L (3.6-5.0)
[2017-09-22 04:58] LABS: Absolute Lymphocytes (CBC) 1.1 K/uL (0.7-4.9); Absolute Neutrophil 8.7 K/uL (1.8-8.0); Basophils % 0.2 % (0-1.3); Eosinophils % 1.2 % (0-4.4); Hematocrit 26.2 % (39.6-49.0); Lymphocytes % 10.1 % (15.3-44.8); MCV 74.1 fL (80-100); MPV 8.2 fL (7.6-11.3); Monocytes % 9.2 % (3.3-12.3); RBC Red Blood Cell Count 3.53 M/uL (4.33-5.43)
[2017-09-22] MEDS: HYDROCODONE/APAP 5/325 MG TAB PO PRN ×2 (05:07→20:52)
[2017-09-22] MEDS: METOPROLOL TAR 25 MG TAB PO SCH ×2 (05:08→18:17)
[2017-09-22] MEDS: PANTOPRAZOLE INJ 80 MG in NA CHLORIDE 0.9% 250 ML IV SCH ×2 (05:30→06:57)
[2017-09-22] MEDS ORDERED: POLYETHYL GLY 3350 17 GM/DOSE PO PRN (09:31)
--- NOTE | 2017-09-22 11:01 | RAD REPORT ---
EXAM DESCRIPTION: Lumbar Spine 3 Views CLINICAL HISTORY: Radiculopathy COMPARISON: None. FINDINGS: Advanced degenerative levoscoliosis of the mid lumbar levels is present. There is multilev el degenerative change with posterior osteophytes and disc thinning throughout the lumbar spine. Aort ic atherosclerosis is noted. Prominent facet arthrosis is present. No finding to indicate an acute fr acture. 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
[2017-09-22] MEDS ORDERED: CIPROFLOXACIN 400mg IV 400 MG/200 ML BAG IV SCH (12:30)
--- NOTE | 2017-09-22 13:26 | PN ---
Date of Progress Note: 09/22/2017 Subjective: The patient is seen and examined. Chart reviewed and case discussed with RN. The patie nt went for EGD yesterday, was found to have some gastritis. The patient complaining of back pain to day. Has not moved out of bed since the hospitalization. PT has been ordered. Review of Systems: Negative except as above. Medications: Reviewed. Physical Examination: Vital Signs: Temperature 98.8, heart rate 69, blood pressure 125/54, respirations 16, O2 92% on 2 L via nasal cannula. General: Awake, alert, oriented x2. Elderly male, ill-appearing, morbidly obese, BMI 37. CV: S1, S2. Peripheral pulses present. No murmurs. Respiratory: Moving air well bilaterally. No wheezing. Gastrointestinal: Abdomen is soft, nontender, nondistended. Positive bowel sounds. Extremities: No clubbing, cyanosis, edema. Neurologic: Nonfocal. Laboratory Data: WBC 10.9, H and H 8.1 and 26.2, platelets 220, neutrophils 79%. Sodium 136, potass ium 4.1, chloride 102, CO2 25, BUN 23, creatinine 1.15, glucose 115, calcium 8.2. Urine culture grow ing Enterococcus faecalis. Blood cultures also growing Enterococcus faecalis. Lumbar spine x-ray sh ows advanced degenerative levoscoliosis of the lumbar spine. Assessment And Plan: An 86-year-old male with: 1.Upper gastrointestinal bleed secondary to diffuse gastritis. Continue PPI. We will monitor H and H. Appreciate Dr. Mancia's input. 2.Acute blood loss anemia. We will continue to monitor H and H and transfuse as needed. 3.Chronic atrial fibrillation. Anticoagulation held due to gastrointestinal bleed. We will discuss with GI concerning resuming anticoagulation. 4.Combined systolic and diastolic heart failure, chronic. We will continue home medications. The p atient is on metoprolol. Entresto is being held. 5.Bacteremia with Enterococcus faecalis. We will adjust IV medications. 6.Urinary tract infection, acute status without hematuria, secondary to Enterococcus faecalis. We w ill adjust IV antibiotics. 7.Obesity, BMI 37. 8.Coronary artery disease, [place] artery and [place] heart without angina, stable. 9.Chronic obstructive pulmonary disease, chronic bronchitis, currently on 2 L of oxygen. 10.Benign prostatic hypertrophy, stable on home medications. 11.Essential hypertension, stable. 12.Hyperlipidemia, mixed. 13.Status post pacemaker. 14.Lower back pain. The patient had recent fall prior to coming to the hospital. Lumbar spine x-ra y shows levoscoliosis. We will continue with pain medications. 15.Prophylaxis with PPI and SCDs. No chemical anticoagulation due to gastrointestinal bleed. Plan: Continue PT. /ORTIZ Voice ID: [id number] Report ID: [id number]
[2017-09-22] MEDS: FINASTERIDE 5 MG TAB PO SCH (13:32)
[2017-09-22] MEDS ORDERED: AMPICILLIN/SULBACT 1.5GM VIAL IVPB SCH (18:00)
[2017-09-22] MEDS: CYCLOBENZAPRINE 10 MG TAB PO SCH ×2 (18:15→21:00)
[2017-09-22] MEDS: DABIGATRAN 150 MG CAP PO SCH ×2 (18:17→21:00)
[2017-09-22] MEDS: AMPICILLIN/SULBACT 1.5 GM in NA CHLORIDE 0.9% 100 ML IVPB SCH (18:30)
[2017-09-22] MEDS ORDERED: FUROSEMIDE 40 MG/4 ML VIAL IV ONE (20:48)
[2017-09-22] MEDS ORDERED: SODIUM CHLORIDE 0.9% 10ML INJ IV PRN (20:53)
[2017-09-22] MEDS: TAMSULOSIN 0.4 MG SR CAP PO SCH (21:00)
[2017-09-22] MEDS: ATORVASTATIN 10 MG TAB PO SCH (21:01)
[2017-09-22] MEDS: OXYBUTYNIN CHLORIDE 5 MG TAB PO SCH (21:01)
[2017-09-22] MEDS: FLUOROMETHOLONE 0.1% LEFT EYE SCH (21:01)
[2017-09-22] MEDS: DOCUSATE NA 100 MG CAP PO SCH (21:02)
[2017-09-22] MEDS: ENSURE HIGH PROTEIN 237 ML CAN PO SCH (21:03)
--- NOTE | 2017-09-22 21:03 | CON ---
History Of Present Illness: I was consulted for patient bacteremia and urinary tract infection deanna persaudy to Enterococcus faecalis. The patient is currently being treated with Cipro. Denies any headac he, nausea, vomiting, chest pain, abdominal pain, constipation, having some back problems. Past Medical History: Includes benign prostatic hypertrophy, coronary artery disease, congestive hea rt failure, COPD, left cornea transplant, atrial fibrillation, benign right knee, osteoarthritis, hyp ertension, hyperlipidemia, pacemaker in December 04, 2014, back surgery, right knee surgery. Social History: Former smoker. Nondrinker. Family History: Alzheimer's, stroke. Medication: Include Unasyn. See MARs for other medication. Allergies: NO KNOWN DRUG ALLERGIES. Review of Systems: A 10-point review was performed. Physical Examination: General: This is an 86-year-old male, lying in bed, not in any acute cardiopulmonary distress. Vital Signs: Temperature 97.5, pulse 72, respirations 16, blood pressure 136/52. HEENT: Unremarkable. Neck: Supple. Lungs: Basal crackles. Heart: S1, S2. Regular. Abdomen: Soft, nontender. Bowel sounds positive. Extremities: No edema. Laboratory Data: Shows WBC 84501 down from 13.3, hemoglobin 8.1, platelets 220. Chemistry shows sod ium 136, potassium 4.1, chloride 102, bicarb 25, BUN 23, creatinine 1.15, glucose is 61. Microdata s hows Enterococcus faecalis in urine and blood. Assessment And Plan: Bacteremia and urinary tract infection secondary to Enterococcus faecalis. We will recommend the patient to start on Unasyn 1.5 g q.6 hours for total of 2 weeks. Continue antibio tic and supportive care. The patient needs to have evaluation for his prostate, possible source of r ecurrent urinary tract infection. We will follow the patient closely. Thank you Dr. Capellan for consult. NF/SKINNYL Voice ID: [id number] Report ID: [id number]
[2017-09-22] MEDS: PANTOPRAZOLE 40 MG INJ IVP SCH (21:14)
--- NOTE | 2017-09-22 22:29 | RAD REPORT ---
EXAM DESCRIPTION: RAD - Chest Single View - 09/22/2017 9:09 pm CLINICAL HISTORY: Chest pain, shortness of breath COMPARISON: September 09 TECHNIQUE: AP portable chest image was obtained 4 hours . FINDINGS: Low lung volumes again noted. Interstitial markings are prominent. Heart, vasculature and lung markings remain prominent. Pacemaker is in place. Heart size is normal. No pneumothorax or enlar ging pleural effusion. IMPRESSION: Limited shallow inspiration film showing no significant change from September 19. Exam limitations can mask mild failure or volume overload.
[2017-09-23] MEDS: AMPICILLIN/SULBACT 1.5 GM in NA CHLORIDE 0.9% 100 ML IVPB SCH ×4 (00:24→18:02)
[2017-09-23] MEDS: HYDROCODONE/APAP 5/325 MG TAB PO PRN ×2 (03:35→12:04)
[2017-09-23] MEDS: ONDANSETRON 4 MG/2 ML VIAL IV PRN ×2 (03:43→15:09)
[2017-09-23] MEDS: METOPROLOL TAR 25 MG TAB PO SCH ×2 (05:15→18:00)
[2017-09-23 05:53] LABS: Absolute Lymphocytes (CBC) 0.6 K/uL (0.7-4.9); Absolute Neutrophil 9.6 K/uL (1.8-8.0); Basophils % 0.2 % (0-1.3); Eosinophils % 0.7 % (0-4.4); Hematocrit 27.1 % (39.6-49.0); Lymphocytes % 5.6 % (15.3-44.8); MCH 22.5 pg (27.0-35.0); MCV 73.8 fL (80-100); Monocytes % 8.8 % (3.3-12.3); RBC Red Blood Cell Count 3.68 M/uL (4.33-5.43)
[2017-09-23 06:21] LABS: Potassium 4.5 mEq/L (3.6-5.0)
[2017-09-23] MEDS: CYCLOBENZAPRINE 10 MG TAB PO SCH ×2 (09:00→10:12)
[2017-09-23] MEDS: DOCUSATE NA 100 MG CAP PO SCH ×2 (10:12→21:13)
[2017-09-23] MEDS: PANTOPRAZOLE 40 MG INJ IVP SCH ×2 (10:13→21:14)
[2017-09-23] MEDS: DABIGATRAN 150 MG CAP PO SCH ×2 (10:23→21:13)
[2017-09-23] MEDS: ENSURE HIGH PROTEIN 237 ML CAN PO SCH ×2 (10:23→21:00)
[2017-09-23] MEDS: FINASTERIDE 5 MG TAB PO SCH (12:41)
--- NOTE | 2017-09-23 13:16 | PN ---
Date of Progress Note: 09/23/2017 Subjective: The patient seen and examined, chart reviewed, and case discussed with RN. The patient not had any further melenic stools. Again complains of his back pain. He was started on some muscle relaxants yesterday, which improved his symptoms; however, now has had some confusion and had some hallucinations at night. Family at bedside. Treatment plan explained. All questions answered. The patient is working with PT, however, very limited usually, but will get on the side of the bed. Case also discussed with Dr. Houston, who recommend long-term IV antibiotics. Review of Systems: Negative except as above. Medications: Reviewed. Physical Examination: Vital Signs: Temperature 98.2, heart rate 69, blood pressure 140/56, respirations 20, and O2 92% on 2 L via nasal cannula. General: Awake, alert, oriented x3, in some mild distress. Elderly male, morbidly obese, ill-appearing. BMI 37. CV: S1, S2. Peripheral pulses present. No murmurs. Respiratory: Moving air well bilaterally. Some diminished breath sounds at the bases. No wheezing or crackles. Gastrointestinal: Abdomen is soft. Mild distention. Nontender. Positive bowel sounds. Extremities: No clubbing, cyanosis, or edema. Neurologic: Nonfocal. Musculoskeletal: Tenderness to palpation in the mid lumbar spine. Laboratory Data: Sodium 136, potassium 4.5, chloride 101, CO2 28, BUN 24, creatinine 1.25, glucose 122, and calcium 8.1. WBC 11.3, H and H 8.3, 27.1, and platelets 247. Blood culture show Enterococcus faecalis as well as urine culture. Chest x-ray, personally reviewed, shows limited shallow inspiration film showing no significant change from September 19, interstitial markings prominent. Pacemaker in place. Assessment And Plan: An 86-year-old male with; 1. Upper gastrointestinal bleed secondary to diffuse gastritis. We will continue PPI and monitor H and H. GI on board. 2. Acute blood loss anemia. Monitor H and H, transfuse as needed. 3. Chronic atrial fibrillation. Anticoagulation has been resumed. H and H are stable. 4. Combined systolic and diastolic heart failure, chronic. The patient is on metoprolol. We will resume Entresto. 5. Bacteremia with Enterococcus faecalis. The patient is now on Unasyn. ID recommendation, include 2 weeks of IV antibiotics. We will set up with social work for SNF referral. 6. Diffuse myopathy. The patient working with PT, however, has only set up on the side of the bed. The patient will likely need residential facility. 7. Urinary tract infection, acute cystitis without hematuria secondary to Enterococcus faecalis, on Unasyn. 8. Obesity, body mass index 37. 9. Coronary artery disease, [place] artery and [place] heart without angina, stable. 10. Chronic obstructive pulmonary disease, chronic bronchitis, currently on 2 L of oxygen. 11. Benign prostatic hypertrophy, stable. 12. Essential hypertension, stable. 13. Hyperlipidemia, mixed. Continue statin. 14. Status post pacemaker. 15. Lower back pain. No acute fractures on x-ray. We will adjust muscle relaxants as the patient is too sedated. 16. Gastrointestinal and deep venous thrombosis with PPI and the patient already on Pradaxa for atrial fibrillation. 17. Acute delirium Plan: Discharge planning. Continue physical therapy evaluation. Monitor H and H. /ORTIZ Voice ID: [id number] Report ID: [id number] PERFECTO
[2017-09-23 16:09] LABS: Absolute Lymphocytes (CBC) 0.9 K/uL (0.7-4.9); Absolute Monocytes 1.1 K/uL (0.1-1.3); Basophils % 0.2 % (0-1.3); Eosinophils % 1.4 % (0-4.4); Hematocrit 27.6 % (39.6-49.0); MCH 23.1 pg (27.0-35.0); MCV 73.7 fL (80-100); MPV 7.7 fL (7.6-11.3); Monocytes % 10.8 % (3.3-12.3); RBC Red Blood Cell Count 3.74 M/uL (4.33-5.43)
[2017-09-23 16:45] LABS: Potassium 4.5 mEq/L (3.6-5.0)
--- NOTE | 2017-09-23 17:38 | RAD REPORT ---
EXAM DESCRIPTION: RAD - Chest Single View - 09/23/2017 5:29 pm CLINICAL HISTORY: PICC line placement. COMPARISON: None. FINDINGS: Portable chest was obtained following placement of a right upper extremity PICC line. The catheter tip is in the SVC.
[2017-09-23] MEDS: SACUBITRIL/VALSARTAN 49/51 MG TAB PO SCH (18:48)
--- NOTE | 2017-09-23 20:37 | PN ---
Subjective: The patient is lying in bed. Denies any headache, nausea, vomiting, chest pain, abdomin al pain, constipation, diarrhea, somnolent. Objective: Vital Signs: Temperature 97, pulse 76, respirations 20, blood pressure 145/63. Lungs: Basal crackles. Heart: S1, S2. Regular. Abdomen: Soft, nontender. Bowel sounds positive. Extremity: Trace edema. Laboratory Data: Lab data shows WBC 82627, hemoglobin 8.3, platelets are 247. Chemistry shows sodiu m 136, potassium 4.5, chloride 101, bicarb 28, BUN 24, creatinine 1.25, glucose is 122. Micro data s hows Enterococcus in blood and in urine. Assessment And Plan: Urinary tract infection and urosepsis and bacteremia pneumonitis. Continue ant ibiotic and supportive care, total course of 2 weeks. We will follow the patient as needed. Prognosis is guarded. NF/MODL Voice ID: [id number] Report ID: [id number]
[2017-09-23] MEDS: ATORVASTATIN 10 MG TAB PO SCH (21:13)
[2017-09-23] MEDS: FLUOROMETHOLONE 0.1% LEFT EYE SCH (21:13)
[2017-09-23] MEDS: TAMSULOSIN 0.4 MG SR CAP PO SCH (21:13)
[2017-09-23] MEDS: OXYBUTYNIN CHLORIDE 5 MG TAB PO SCH (21:13)
[2017-09-24] MEDS: AMPICILLIN/SULBACT 1.5 GM in NA CHLORIDE 0.9% 100 ML IVPB SCH ×3 (00:38→13:11)
[2017-09-24] MEDS: SACUBITRIL/VALSARTAN 49/51 MG TAB PO SCH (05:40)
[2017-09-24] MEDS: METOPROLOL TAR 25 MG TAB PO SCH (06:00)
[2017-09-24 06:24] LABS: Potassium 4.6 mEq/L (3.6-5.0)
[2017-09-24 06:48] LABS: Absolute Lymphocytes (CBC) 0.9 K/uL (0.7-4.9); Absolute Monocytes 1.1 K/uL (0.1-1.3); Absolute Neutrophil 8.4 K/uL (1.8-8.0); Basophils % 0.2 % (0-1.3); Eosinophils % 1.2 % (0-4.4); Hematocrit 27.5 % (39.6-49.0); Lymphocytes % 8.2 % (15.3-44.8); MCV 73.9 fL (80-100); MPV 7.6 fL (7.6-11.3); Monocytes % 10.7 % (3.3-12.3); RBC Red Blood Cell Count 3.72 M/uL (4.33-5.43)
[2017-09-24] MEDS: ENSURE HIGH PROTEIN 237 ML CAN PO SCH (09:00)
[2017-09-24 09:02] VITALS: O2SAT 92
[2017-09-24] MEDS: HYDROCODONE/APAP 5/325 MG TAB PO PRN (09:29)
[2017-09-24] MEDS: DOCUSATE NA 100 MG CAP PO SCH (09:30)
[2017-09-24] MEDS: CYCLOBENZAPRINE 10 MG TAB PO SCH (09:31)
[2017-09-24] MEDS: DABIGATRAN 150 MG CAP PO SCH (09:31)
[2017-09-24] MEDS: PANTOPRAZOLE 40 MG INJ IVP SCH (09:31)
--- NOTE | 2017-09-24 11:47 | PN ---
Date of Progress Note: 09/24/2017 Subjective: The patient is seen and examined, chart reviewed, and case discussed with RN. The patient states he is doing okay. No other complaints overnight. No acute events. Review of Systems: Negative except as above. Medications: Reviewed. Physical Examination: Vital Signs: Temperature 97.6, heart rate 53, blood pressure 122/52, respirations 20, O2 93% on 2 L via nasal cannula. General: Awake, alert, oriented x2, in mild distress. Elderly male, ill- appearing, obese, BMI 37. CV: S1, S2. Peripheral pulses present. No murmurs. Respiratory: Diminished breath sounds. No wheezing. No stridor. Gastrointestinal: Abdomen is soft, nontender. Distended. Positive bowel sounds. Extremities: No clubbing, cyanosis, or edema. Neurologic: Nonfocal. Somewhat confused Laboratory Data: Sodium 137, potassium 4.6, chloride 99, CO2 of 31, BUN 32, creatinine 1.52, glucose 123, calcium 8.4. WBC 10.6, H and H 8.5 and27.5, platelets 294, neutrophils 79%. Blood cultures and urine culture growing enterococcus faecalis. Chest x-ray shows PICC line in place. Assessment And Plan: An 86-year-old male with: 1. Upper GI bleed secondary to diffuse gastritis. Continue PPI. 2. Acute blood loss anemia. Monitor H and H, transfuse as needed, currently stable. 3. Chronic atrial fibrillation. Anticoagulation has been resumed. Hemoglobin has been steady. 4. Combined systolic and diastolic heart failure, chronic. Continue metoprolol and trazodone. 5. Enterococcus faecalis bacteremia. IV antibiotics were adjusted. The patient will need 2 weeks of IV antibiotics. Workup will continue with SNF referral. 6. Disuse myopathy. Continue with physical therapy evaluation. The patient is very debilitated. 7. Urinary tract infection. Acute cystitis without hematuria secondary to Enterococcus faecalis. Continue antibiotics. 8. Obesity, BMI 37. 9. Coronary artery disease [place] artery and [place] heart without angina, stable. 10. Chronic obstructive pulmonary disease, chronic bronchitis, currently on 2 L of oxygen. 11. Benign prostatic hyperplasia, stable. 12. Essential hypertension, stable. 13. Hyperlipidemia mixed. Continue statin. 14. Status post pacemaker. 15. Lower back pain. X-ray reviewed. Does have levoscoliosis. We will continue with pain medications and muscle relaxants. 16. Acute delirium. 17. Gastrointestinal and deep venous thrombosis prophylaxis. PPI and the patient already on Pradaxa. Plan: Discharge to SNF once accepted. JUAN Voice ID: [id number] Report ID: [id number] MTDD
[2017-09-24] MEDS: FINASTERIDE 5 MG TAB PO SCH (12:00)
[2017-09-24 13:01] VITALS: BP 155/69; TEMP 98.5
[2017-09-24] MEDS ORDERED: FUROSEMIDE 20 MG/ 2ML VIAL IV ONE (14:00)
[2017-09-24] MEDS ORDERED: BISACODYL 10 MG RECTAL SUPP PR ONE (14:00)
[2017-09-24] MEDS ORDERED: NA CHLORIDE 0.9% 1,000 ML ONE (14:26)
[2017-09-24] MEDS ORDERED: ESMOLOL HCL IV SCH (15:00)
[2017-09-24] MEDS ORDERED: NA CHLORIDE 0.9% IV SCH (15:00)
[2017-09-24] MEDS ORDERED: AMIODARONE HCL 150 MG/3 ML INJ IV ONE (15:03)
[2017-09-24] MEDS ORDERED: MAGNESIUM SULF 1GM/2ML VIAL IV ONE (15:03)
[2017-09-24] MEDS ORDERED: EPINEPHrine 1 MG/10 ML SYR IV ONE (15:03)
--- NOTE | 2017-09-24 15:44 | P.PN ---
Date of Service: 09/24/17 Addendum Patient is seen earlier this afternoon alert talking. blood pressure check was 150 systolic heart rate 66. patient started having spit up that was brown in color.gastric Occult was ordered NG tube was ordered stat KUB was ordered. Approximately 20 min later patient had code yellow and then code blue please see code blue sheet for further details regarding medication and details of ACLS. The ER physician doctor Milvia also responded - patient was intubated. Please see his procedure note for intubation. Family was updated regarding patient's condition. initially in PEA and then in ventricular fibrillation patient was shocked multiple times received 2 units of blood bolused however Pulse was never regained. medical power attorney recruiter daughter requested to stop resuscitation at 3:04 p.m. patient was declared at that time.
[2017-09-24] MEDS ORDERED: ESMOLOL 100 MG/10 ML VIAL IV ONE (16:00)
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
== END 2017-09-24 15:04 | disposition expired | DRG 377 ==
LOC: ER 10:49 → ERHOLD 13:35 → 4TH 16:08
PROVIDERS: ADMIT Physician Assistant; ATTEND Family Medicine
PROC: 0DB68ZX Excision of Stomach, Via Natural or Artificial Opening Endoscopic, Diagnostic (ICD-10-PCS; principal; 2017-09-21 10:00)
PROC: 02HV33Z Insertion of Infusion Device into Superior Vena Cava, Percutaneous Approach (ICD-10-PCS; 2017-09-23)
PROC: 0BH17EZ Insertion of Endotracheal Airway into Trachea, Via Natural or Artificial Opening (ICD-10-PCS; 2017-09-24)
PROC: 5A2204Z Restoration of Cardiac Rhythm, Single (ICD-10-PCS; 2017-09-24)
DX: K29.71 Gastritis, unspecified, with bleeding (principal); I49.01 Ventricular fibrillation; N39.0 Urinary tract infection, site not specified; I50.42 Chronic combined systolic (congestive) and diastolic (congestive) heart failure; I13.0 Hypertensive heart and chronic kidney disease with heart failure and stage 1 through stage 4 chronic kidney disease, or unspecified chronic kidney disease; D62 Acute posthemorrhagic anemia; I25.10 Atherosclerotic heart disease of native coronary artery without angina pectoris; J44.9 Chronic obstructive pulmonary disease, unspecified; N40.0 Benign prostatic hyperplasia without lower urinary tract symptoms; I48.2 Chronic atrial fibrillation; N18.2 Chronic kidney disease, stage 2 (mild); E78.2 Mixed hyperlipidemia; K29.70 Gastritis, unspecified, without bleeding; B95.2 Enterococcus as the cause of diseases classified elsewhere; M54.5 Low back pain; R41.0 Disorientation, unspecified; E66.9 Obesity, unspecified; Z87.891 Personal history of nicotine dependence; Z68.36 Body mass index [BMI] 36.0-36.9, adult; Z95.0 Presence of cardiac pacemaker
CPT/HCPCS: 36415; 71045; 72100; 80048; 80076; 81003; 81015; 82271; 82607; 82728; 83540; 83690; 83880; 83986; 84145; 84439; 84443; 84466; 85014; 85018; 85025; 86850; 86900; 86901; 87040; 87077; 87086; 87088; 87186; 87205; 88305; 88312; 93005; 96365; 96366; 96375; 97163; 99285; C9113; J0171; J0282; J0295; J0696; J0744; J1940; J2175; J2270; J2405; J3475; J7030; P9016